=== PATIENT | female | born 1985 | race Hispanic/Latino ===

== ENCOUNTER 2016-08-23 02:05 | Emergency (ER) | payer BC, OTHER ==
[~2016-08-23] VITALS: Ht 154.9 cm; Wt 71.8 kg
[~2016-08-23 02:05] MED LIST: CIPROFLOXACN500 MG PO; FLONASE SPRAY50 MC1; METRONIDAZOL500 MG PO; NO HOME MEDS; NUVARING VA; PRENATA5 OR; ULTRAM50 MG PO; ZYRTEC10 M1 PO
[2016-08-23] MEDS ORDERED: PRE-NATAL PO (02:16)
[2016-08-23 02:58] LABS: HEMATOCRIT 32.9 % (37.0-47.0); HEMOGLOBIN 11.3 g/dl (12.0-16.0); IMMATURE GRANULOCYTES 0.4 % (0.0-1.0); MEAN CORPUSCULAR HGB 30.2 pG CALC (26.0-32.0); MEAN CORPUSCULAR HGB CONC 34.3 g/L CALC (32.0-36.0); NEUT# 8.76 thou/uL (2.00-7.15); RED BLOOD COUNT 3.74 mill/uL (4.20-5.60); RED CELL DISTRI WIDTH 13.6 % (11.5-15.5)
[2016-08-23 03:18] LABS: ALBUMIN 3.6 g/dL (3.2-5.0); ALKALINE PHOSPHATASE 53 u/l (38-126); ANION GAP 15 (6-22 (CALC)); BILIRUBIN, TOTAL 0.3 mg/dL (0.0-1.4); BUN 7 mg/dL (7-17); BUN/CREATININE RATIO 13 (12-20 (CALC)); CALCIUM 9.2 mg/dL (8.4-10.2); CARBON DIOXIDE 21 mmol/l (22-30); CHLORIDE 104 mmol/l (95-108); CREATININE 0.6 mg/dL (0.5-1.0); GFR > 60 ML/MIN (>=60 (CALC)); GFR FOR AFR.AMER. > 60 ML/MIN (>=60 (CALC)); GLUCOSE 95 mg/dL (65-105); POTASSIUM 3.9 mmol/l (3.5-5.1); SGOT/AST 21 u/l (14-36); SGPT/ALT 28 u/l (9-52); SODIUM 136 mmol/l (137-146); TOTAL PROTEIN 6.8 g/dL (6.3-8.2)
[2016-08-23 04:00] LABS: BETA-HCG, QUANT(RESULT NUMBER) 45796 mIU/mL
[2016-08-23 04:28] VITALS: BP 119/81
== END 2016-08-23 04:52 | disposition short-term general hospital (02) | DRG 782 ==
LOC: ED 02:05
PROVIDERS: Emergency Medicine
DX: O42.912 Preterm premature rupture of membranes, unspecified as to length of time between rupture and onset of labor, second trimester (principal); Z3A.18 18 weeks gestation of pregnancy